=== PATIENT | female | born 1985 | race Caucasian/White ===

== ENCOUNTER 2022-12-13 08:14 | Emergency (ER) | payer BC ==
[~2022-12-13] VITALS: Ht 162.6 cm; Wt 61.2 kg
--- NOTE | 2022-12-13 08:25 | NUR ---
C/O GENERALIZED HEADACHE AND NAUSEA X 3 DAYS. PT DENIES VOMITING. GOES ON AND OFF DENIES NAUSEA AND VOMITING
--- NOTE | 2022-12-13 08:37 | NUR ---
DR GARNER AT BEDSIDE FOR EVAL.
[2022-12-13 08:54] VITALS: BP 109/69
== END 2022-12-13 08:59 | disposition home or self-care (01) ==
LOC: ER 08:50
DX: R51.9 Headache, unspecified (principal)